=== PATIENT | female | born 2005 | race Two or more races ===

== ENCOUNTER 2024-12-24 10:08 | Emergency (ER) | payer OTHER ==
[~2024-12-24] VITALS: Ht 160 cm; Wt 92.5 kg
[2024-12-24] MEDS ORDERED: ACETAMINOPHEN 500 MG GEL..CAP PO ONE ×2 (11:30→11:39)
[2024-12-24 12:26] LABS: BASO % 0.1 % (0.1-1.2); EOS # 0.08 (0.04-0.54); EOS % 0.7 % (0.7-7.0); LYMPH # 2.43 (1.18-3.74); LYMPH % 22.3 % (19.3-53.1); MEAN PLATELET VOLUME 9.50 fl (9.4-12.4); MONO # 0.64 (0.24-0.82); MONO % 5.9 % (4.7-12.5); NEUT # 7.70 (1.56-6.13); NEUT % 70.7 % (34.0-71.1); RED CELL DISTRIBUTION WIDTH 12.1 % (11.6-14.4)
[2024-12-24 12:27] LABS: URINE APPEARANCE Turbid; URINE BILIRRUBIN Negative (NEGATIVE); URINE BLOOD Negative; URINE COLOR Yellow; URINE GLUCOSE Negative (NEGATIVE); URINE KETONE Negative (NEGATIVE); URINE LEUKOCYTE Moderate; URINE NITRATE Negative; URINE PROTEIN Negative (NEGATIVE); URINE UROBILINOGEN 0.2 E.U./dl
[2024-12-24 12:31] LABS: URINE BACTERIA 488.3 uL (0.0-1933); URINE EPITHELIAL CELLS 22.1 uL (0.0-38.8); URINE RBC 4.8 uL (0.0-20.8); URINE WBC 91.9 uL (0.0-23.2)
[2024-12-24 12:49] LABS: URINE CAST 0.00 uL (0.0-1.40)
[2024-12-24 13:14] LABS: ALT/SGPT 31.0 U/L (12-78); AST/SGOT 20.0 U/L (15-37); BILIRUBIN TOTAL 0.3 mg/dL (0.3-1.2); BUN CREA RATIO 18.0 (7.0-25.0); CREATININE SERUM 0.45 mg/dL (0.55-1.02); GFR 175.88; GLOBULINA 3.4 G/DL (2.4-3.5); GLUCOSE FASTING 83.0 mg/dL (65-100); OSMOLALITY SERUM 281.0 MOSM/KG (275-295)
[2024-12-24 13:15] LABS: HCG QUANTITATIVE 9976.0 mUI/mL (1-3)
== END 2024-12-24 19:13 | disposition home or self-care (01) ==
LOC: ER 10:08
DX: Z33.1 Pregnant state, incidental (principal); Z3A.15 15 weeks gestation of pregnancy; N93.9 Abnormal uterine and vaginal bleeding, unspecified; R10.20 Pelvic and perineal pain unspecified side; Z91.013 Allergy to seafood; Z91.038 Other insect allergy status